=== PATIENT | male | born 1960 | race Caucasian/White ===

== ENCOUNTER 2025-08-07 20:03 | Emergency (ER) | payer OTHER, SELFPAY ==
[2025-08-07 20:04] VITALS: BP 119/67; PULSE 92; RESP 19; TEMP 37.3; O2SAT 95; BMI 28.8
--- NOTE | 2025-08-07 20:43 | EX.ED.DYSGE1 ---
HPI History of Present Illness Chief Complaint: General Illness Narrative Narrative: 65-year-old male presents with his because of nausea and vomiting that he has had on Thursday, 2 days ago. He relates history that he had [employer]. Afterwards, he became nauseated and vomited twice without any hematemesis. Denies any problems with diarrhea. He threw up a little again today. Took a nap, noticed that he had been incontinent of urine. However, he relates history that he is following up with urology because he has an enlarged prostate, and he was put on medication to shrink his prostate but he has not followed up as of yet. His had stated to triage that he was mildly confused. He feels generally weak and tired. No exacerbating or alleviating factors. PFSH PFS Medical History no medical history Home Medications ?Medication ?Instructions ?Recorded ?Last Taken ?Type finasteride 5 mg tablet 5 mg PO DAILY 08/07/25 Unknown History sertraline 50 mg tablet 50 mg PO DAILY 08/07/25 Unknown History tadalafil 5 mg tablet (Cialis) 2.5 mg PO DAILY 08/07/25 Unknown History Allergy/AdvReac Type Severity Reaction Status Date / Time No Known Allergies Allergy Verified 08/07/25 20:06 Family History no significant family his Surgical History no surgical history Social History Smoking Status: Current every day smoker tobacco type: cigarettes ROS ROS ED ROS Narrative Review of systems positive for difficulty urinating, nausea and vomiting. Denies fever or chills but states he is fatigued and tired. No hematemesis. No diarrhea, no abdominal pain. EXAM Physical Exam Narrative Exam Narrative: Afebrile. Vital signs noted. Nontoxic-appearing. Cardiovascular examination feels a regular rate and rhythm. Lungs are clear to auscultation bilaterally. Abdomen is soft and nontender without guarding or rebound. Positive bowel sounds. No epigastric tenderness. Neurological examination nonfocal, nonlateralizing. Awake, alert, oriented to person, place, time, and current events. No pedal edema noted. Slightly tacky mucous membranes. Const Vital Signs: 08/07/25 20:04 08/07/25 20:25 08/07/25 21:04 Temperature 99.2 F H Temperature Source Oral Pulse Rate 92 81 Respiratory Rate 19 H Respiratory Effort Normal Non-Labored Blood Pressure 119/67 122/72 H Blood Pressure Mean 84 88 Pulse Ox 95 95 Oxygen Delivery Method Room Air Room Air 08/07/25 21:04 08/07/25 22:00 Temperature Temperature Source Pulse Rate 82 80 Respiratory Rate Respiratory Effort Blood Pressure 121/78 H 122/72 H Blood Pressure Mean 92 88 Pulse Ox 96 94 Oxygen Delivery Method Room Air Room Air MDM MDM MDM Narrative Medical decision making narrative: Differential diagnosis includes but not limited to dehydration versus other electrolyte abnormality. I doubt pancreatitis because history and physical does not support this. Is not having diarrhea so I doubt food poisoning. I do not feel CT of the abdomen pelvis is indicated. He was bolused normal saline 1 L intravenously. He may have had incontinence of urine while he was sleeping secondary to overflow incontinence. CBC and BMP will be checked and UA as well to look for cystitis or complicated urinary tract infection as he may not be emptying his bladder completely. I reviewed his laboratory work and he has slightly elevated white count of 11.9 with hemoglobin normal at 15.5, platelet count normal at 151. Electrolyte panel is significant for BUN of 22 with normal creatinine of 1.11, glucose appropriately elevated at 138 with a normal anion gap of 11. Sodium normal at 134 and potassium 3.6. Calcium 8.7. Urinalysis slightly cloudy with 10-25 RBCs but 0-5 WBCs. There is 1+ bacteria. While I do not feel he has a full-blown infection that needs antibiotic treatment currently, his urine will be sent for culture. Upon repeat examination after IV fluid bolus, he states he feels improved. He is motivated for discharge. I feel he can be discharged to follow-up. Return instructions to the emergency department were reviewed. Disposition is discharged home in stable condition. History & Record Review Discussion w/independent historian: Patient Additional record(s) reviewed:: No prior records (No prior ED visit) Lab Data Attestation: I reviewed the patient's lab results. Labs: Laboratory Results - last 24 hr 08/07/25 08/07/25 20:26 20:55 WBC 11.9 H RBC 4.94 Hgb 15.5 Hct 44.4 MCV 89.9 MCH 31.4 MCHC 34.9 RDW Std Deviation 40.2 RDW Coeff of Tim[place] 12.2 Plt Count 151 MPV 10.2 Immature Gran % (Auto) 0.500 Neut % (Auto) 70.7 H Lymph % (Auto) 5.3 L [place] % (Auto) 10.6 H Eos % (Auto) 12.6 H Baso % (Auto) 0.3 Absolute Neuts (auto) 8.4 H Absolute Lymphs (auto) 0.63 L Nucleated RBC % 0 Sodium 134 Potassium 3.6 Chloride 98 Carbon Dioxide 25.0 Anion Gap 11 BUN 22 H Creatinine 1.11 Estim Creat Clear Calc 82.02 Est GFR (MDRD) Non-Af 75 BUN/Creatinine Ratio 19.6 Glucose 138 H Calcium 8.7 Urine Color Yellow Urine Clarity Sl. Cloudy Urine pH 6.0 Ur Specific [place] 1.010 Urine Protein 100 H Urine Glucose (UA) Normal Urine Ketones Negative Urine Occult Blood 250 H Urine Nitrite Negative Urine Bilirubin Negative Urine Urobilinogen Normal Ur Leukocyte Esterase 25 H Urine RBC 10-25 SEEN Urine WBC 0-5 SEEN Ur Squamous Epith Cells 0 SEEN Urine Bacteria 1+ Urine Mucus 0 SEEN Discharge Plan Triage Chief Complaint: General Illness ED Provider: Jovany Stoner Dx/Rx/DC Orders Clinical Impression: Nausea and vomiting, Generalized weakness Instructions: ED Vomiting (Adult), ED Weakness Uncertain Cause Prescriptions: No Action sertraline 50 mg tablet 50 mg PO DAILY tadalafil [Cialis] 5 mg tablet 2.5 mg PO DAILY finasteride 5 mg tablet 5 mg PO DAILY Primary Care Provider: Ry Oleary,Out of Referrals: [facility] Doctor,Out of [Primary Care Provider, Medical] Activity Restrictions/Additional Instructions: Follow-up with your primary care provider in the next 2 to 3 days. Return with fever, new or worsening symptoms. Follow-up with urology soon as possible. Print Language: Irish Disposition Disposition: Home, Self Care
[2025-08-07] MEDS: 0.9% Normal Saline (1000mL) 1,000 ML 1000 ML IV (20:48)
[2025-08-07 20:50] LABS: Hematocrit 44.4 % (40-54); Hemoglobin 15.5 g/dL (13.0-16.5); Immature Granulocytes Count 0.060 X10^3/uL (0.0-0.0); Mean Corp Hgb Conc 34.9 g/dL (32-36); Mean Corpuscular Volume 89.9 fL (80-94); Mean Platelet Vol. 10.2 fl (6.2-12.0); NRBC Flagged by Analyzer 0 % (0-5); POSITIVE MORPHOLOGY YES; Platelet Count 151 K/mm3 (150-450); RBC Distribution Width CV 12.2 % (11.6-14.6); RBC Distribution Width SD 40.2 fl (35.1-43.9); Red Blood Count 4.94 M/mm3 (4.6-6.2); White Blood Count 11.9 K/mm3 (4.4-11.0)
[2025-08-07 21:04] VITALS: BP 121/78; BP 122/72; PULSE 81; PULSE 82; O2SAT 95; O2SAT 96
[2025-08-07 21:06] LABS: Mucous, Urine 0 SEEN /hpf (<or=2+); Squamous Epithelial Cells - UA 0 SEEN /hpf (0-5)
[2025-08-07 21:10] LABS: Color, Urine Yellow (Yellow); Glucose, Dipstick Normal (Normal); Ketone-Dipstick Negative (Negative); Leukocyte Esterase-Dipstick 25 /ul (Negative); Nitrite-Dipstick Negative (Negative); Occult Blood-Urine 250 /ul (Negative); Protein-Dipstick 100 mg/dl (Negative); Specific Gravity, Urine 1.010 (1.002-1.030); Urine Bilirubin Dipstick Negative (Negative)
[2025-08-07 21:13] LABS: Anion Gap 11 (5-15); BUN 22 mg/dL (4-19); BUN/Creat Ratio 19.6 RATIO (10-20); Calcium,Total 8.7 mg/dL (7.6-11.0); Carbon Dioxide 25.0 mmol/L (21.0-32.0); Chloride 98 mmol/L (98-108); Estimated Creatinine Clearance 82.02 ml/min (50-250); Glucose 138 mg/dL (70-99); Potassium 3.6 mmol/L (3.3-5.1)
[2025-08-07 21:16] LABS: Differential Indicated SCAN CRITERIA MET
[2025-08-07 21:54] LABS: Red Blood Cells-Urine 10-25 SEEN /hpf (0-5)
[2025-08-07 22:00] VITALS: BP 122/72; PULSE 80; O2SAT 94
[2025-08-07 22:37] LABS: Differential Comment SCANNED
[2025-08-07 22:41] VITALS: BP 113/70; PULSE 79; RESP 17; TEMP 37.3; O2SAT 94
== END 2025-08-07 22:46 | disposition home or self-care (01) ==
PROVIDERS: Emergency Provider Emergency Medicine; Visit Provider Emergency Medicine
DX: R11.2 Nausea with vomiting, unspecified (principal); R53.1 Weakness; N40.1 Benign prostatic hyperplasia with lower urinary tract symptoms; R32 Unspecified urinary incontinence; F17.210 Nicotine dependence, cigarettes, uncomplicated; Z79.899 Other long term (current) drug therapy
CPT/HCPCS: 80048; 81001; 85025; 87086; 99283